=== PATIENT | male | born 1980 | race Caucasian/White ===

== ENCOUNTER 2018-02-15 23:44 | Emergency (ER) | payer OTHER, MEDICAID ==
[~2018-02-15] VITALS: Ht 177.8 cm; Wt 99.8 kg
[2018-02-15 23:55] VITALS: BP_SYST 123
[2018-02-16] MEDS ORDERED: SULFAMETHOXAZOLE/TRIMETHOPR DS 1 TABLET PO ONE (01:15)
[2018-02-16] MEDS ORDERED: CEPHALEXIN 500 MG CAPSULE PO ONE (01:15)
[2018-02-16] MEDS ORDERED: LIDOCAINE/EPI 1% 1:100000 20 ML VIAL INJ ONE (01:15)
[2018-02-16 02:19] VITALS: BP_SYST 120
== END 2018-02-16 02:19 | disposition home or self-care (01) ==
LOC: SED 23:44
DX: L02.212 Cutaneous abscess of back [any part, except buttock and flank] (principal)
CPT/HCPCS: 96372; 99283

== ENCOUNTER 2018-02-17 22:59 | Emergency (ER) | payer OTHER, MEDICAID ==
[~2018-02-17] VITALS: Ht 177.8 cm; Wt 99.8 kg
[2018-02-17 23:04] VITALS: BP_SYST 124
--- NOTE | 2018-02-17 23:15 | NUR ---
Patient to ER bed 04 to gown for evaluation. Side rails up. Report given to MICKI Kulkarni
--- NOTE | 2018-02-17 23:17 | NUR ---
Patient AAOx4, ambulatory. Patient states having a main complaint of a "bump" on his back and states he is here for a recheck of the bump. The patient had an incision and drainage procedure done in the ER on 02/15/18. No redness or drainage noted to the patient's back. Patient denies pain. Patient denies any other complaints.
--- NOTE | 2018-02-17 23:18 | NUR ---
ER Dr. Rahman at bedside examining patient.
[2018-02-17 23:32] VITALS: BP_SYST 122
--- NOTE | 2018-02-17 23:32 | NUR ---
Patient given written and verbal discharge instructions and verbalizes understanding. ER MD discussed with patient the results and treatment provided. Patient in stable condition. ID arm band removed. No Rx given. Patient educated on pain management and to follow up with PMD. Pain Scale 0/10. Opportunity for questions provided and answered.
== END 2018-02-17 23:32 | disposition home or self-care (01) ==
LOC: SED 22:59
DX: Z48.01 Encounter for change or removal of surgical wound dressing (principal)
CPT/HCPCS: 99283

== ENCOUNTER 2021-07-22 00:04 | Emergency (ER) | payer OTHER, MEDICAID ==
[~2021-07-22] VITALS: Ht 182.9 cm; Wt 117.9 kg
[2021-07-22 00:10] VITALS: BP_SYST 167
--- NOTE | 2021-07-22 00:10 | NUR ---
Patient triaged and placed in waiting room. VSS and patient appears in no acute distress at this time. awaiting available bed, and MD notified of need for MSE.
--- NOTE | 2021-07-22 00:45 | NUR ---
ER examining patient in the lobby.
[2021-07-22] MEDS ORDERED: KETOROLAC TROMETHAMINE 30 MG VIAL IM ONE (01:15)
[2021-07-22 01:47] LABS: CALCIUM 8.7 mg/dL (8.4-11.0); CREATININE 0.74 mg/dL (0.55-1.30); POTASSIUM 4.3 mmol/L (3.5-5.1)
[2021-07-22 01:50] LABS: BASOPHILS % (AUTO) 0.3 % (0.0-2.0); EOSINOPHILS % (AUTO) 0.2 % (0.0-4.0); HEMATOCRIT 46.2 % (36-54); HEMOGLOBIN 15.9 g/dL (14.0-18.0); LYMPHOCYTES # (AUTO) 1.2 K/uL (1.0-5.5); LYMPHOCYTES % (AUTO) 7.9 % (20.5-51.5); MEAN CORPUSCULAR HEMOGLOBIN 29 pg (27-31); MEAN CORPUSCULAR HGB CONC 34 % (32-36); MEAN CORPUSCULAR VOLUME 85 fL (79.0-98.0); MONOCYTES # (AUTO) 0.4 K/uL (0.0-1.0); NEUTROPHILS # (AUTO) 13.1 K/uL (1.8-7.7); NEUTROPHILS % (AUTO) 88.6 % (40.0-70.0); RED BLOOD CELL COUNT(AUTO) 5.44 MIL/uL (4.2-6.2); RED CELL DISTRIBUTION WIDTH 14.6 % (9.0-15.0); WHITE BLOOD COUNT (AUTO) 14.7 K/uL (4.8-10.8)
[2021-07-22 01:52] LABS: ALBUMIN 4.1 g/dL (3.4-4.8); PLATELET COUNT (AUTO) 782 K/uL (130-430); TOTAL BILIRUBIN 0.4 mg/dL (0.0-1.0)
--- NOTE | 2021-07-22 03:03 | NUR ---
Pt taken to ultrasound room by Dr Simpson.
--- NOTE | 2021-07-22 05:25 | NUR ---
Dr Simpson re-eval pt in the lobby.
[2021-07-22] MEDS ORDERED: PHE25 PO (05:40)
[2021-07-22] MEDS ORDERED: PANT20TA2 PO (05:40)
[2021-07-22] MEDS ORDERED: HYDR-3917 PO (05:40)
--- NOTE | 2021-07-22 06:40 | NUR ---
Patient given written and verbal discharge instructions and verbalizes understanding. ER MD discussed with patient the results and treatment provided. Patient in stable condition. ID arm band removed. Rx of NORCO,PROTONIX,PHENERGAN given. Patient educated on pain management and to follow up with PMD. Pain Scale 0/10. Opportunity for questions provided and answered. Medication side effect fact sheet provided.
[2021-07-22 06:44] VITALS: BP_SYST 150
== END 2021-07-22 06:44 | disposition home or self-care (01) ==
LOC: SED 00:04
DX: K80.70 Calculus of gallbladder and bile duct without cholecystitis without obstruction (principal)
CPT/HCPCS: 36415; 76700; 80053; 83690; 85025; 96372; 99284; J1885

== ENCOUNTER 2022-02-16 22:07 | Emergency (ER) | payer MEDICARE, MEDICAID ==
[~2022-02-16] VITALS: Ht 180.3 cm; Wt 111.1 kg
[~2022-02-16 22:07] MED LIST: HYDR-3917 PO; PANT20TA2 PO; PHE25 PO
[2022-02-16 22:30] VITALS: BP_SYST 156
--- NOTE | 2022-02-16 22:30 | NUR ---
Patient ambulatory to bed 5 for evaluation and treatment
--- NOTE | 2022-02-16 23:10 | NUR ---
Pt in bed 5 w/ c/o RUQ abdominal pain 10/10 w/ nausea and history of gallstones. Pt appears anxious and paces around his room. Pt states he has had chills, but is afebrile at this time. Respirations even and unlabored.
[2022-02-16] MEDS ORDERED: MORPHINE 4 MG INJ. 4 MG/ML VIAL IVP ONE (23:15)
[2022-02-16 23:48] LABS: BASOPHILS # (AUTO) 0.1 K/uL (0.0-0.2); BASOPHILS % (AUTO) 0.6 % (0.0-2.0); EOSINOPHILS # (AUTO) 0.2 K/uL (0.0-0.4); EOSINOPHILS % (AUTO) 1.5 % (0.0-4.0); HEMATOCRIT 44.7 % (36-54); HEMOGLOBIN 15.4 g/dL (14.0-18.0); LYMPHOCYTES # (AUTO) 2.1 K/uL (1.0-5.5); LYMPHOCYTES % (AUTO) 13.8 % (20.5-51.5); MEAN CORPUSCULAR HEMOGLOBIN 30 pg (27-31); MEAN CORPUSCULAR HGB CONC 34 % (32-36); MEAN CORPUSCULAR VOLUME 87 fL (79.0-98.0); MONOCYTES # (AUTO) 0.6 K/uL (0.0-1.0); MONOCYTES % (AUTO) 4.3 % (1.7-9.3); NEUTROPHILS # (AUTO) 12.1 K/uL (1.8-7.7); NEUTROPHILS % (AUTO) 79.8 % (40.0-70.0); PLATELET COUNT (AUTO) 497 K/uL (130-430); RED BLOOD CELL COUNT(AUTO) 5.12 MIL/uL (4.2-6.2); RED CELL DISTRIBUTION WIDTH 15.4 % (9.0-15.0); WHITE BLOOD COUNT (AUTO) 15.1 K/uL (4.8-10.8)
[2022-02-16 23:53] LABS: CALCIUM 9.1 mg/dL (8.4-11.0); CREATININE 1.15 mg/dL (0.55-1.30)
[2022-02-16 23:59] LABS: ALBUMIN 3.8 g/dL (3.4-4.8); TOTAL BILIRUBIN 0.6 mg/dL (0.0-1.0)
[2022-02-17] MEDS ORDERED: KETOROLAC TROMETHAMINE 30 MG VIAL IVP ONE (00:15)
[2022-02-17] MEDS ORDERED: MORPHINE 4 MG INJ. 4 MG/ML VIAL IVP ONE (00:15)
[2022-02-17] MEDS ORDERED: ONDANSETRON HCL 4 MG/2 ML VIAL IVP ONE ×2 (00:15)
[2022-02-17] MEDS ORDERED: PIPERACILLIN/TAZO 3.375 GM in NS 50 ML IV ONE (00:30)
[2022-02-17] MEDS ORDERED: metroNIDAZOLE 500 mg/NS 100 ML IV ONE (00:30)
[2022-02-17] MEDS ORDERED: NACL 0.9% 1,000 ML IV ONE (00:30)
--- NOTE | 2022-02-17 01:00 | NUR ---
Pt to restroom at this time
[2022-02-17] MEDS ORDERED: PIPERACILLIN/TAZOBACTAM 3.375 GM/VIAL (ZOSYN) IV ONE (01:11)
--- NOTE | 2022-02-17 01:30 | NUR ---
Pt states "my pain is better at this time. It feels like a 2 or 3."
--- NOTE | 2022-02-17 04:30 | NUR ---
IV discontinued. No signs of bleeding. Catheter in tact.
--- NOTE | 2022-02-17 04:42 | NUR ---
Pt left AMA. Form signed. MD Mclain aware and spoke to patient regarding risks of leaving AMA.
[2022-02-19] MEDS ORDERED: SIME80TA15 PO (12:48)
[2022-02-19] MEDS ORDERED: HYDR-3927 PO (12:48)
== END 2022-02-17 04:42 | disposition left against medical advice (07) ==
LOC: SED 22:07
DX: R10.11 Right upper quadrant pain (principal); R11.2 Nausea with vomiting, unspecified; R50.9 Fever, unspecified; Z79.899 Other long term (current) drug therapy
CPT/HCPCS: 99284; 76705; 80053; 83690; 85025; 36415; 96365; 96375; J1885; J3490; J2405; J2543; J2270

== ENCOUNTER 2023-10-10 11:29 | Emergency (ER) | payer OTHER, MEDICAID ==
[~2023-10-10] VITALS: Ht 180.3 cm; Wt 99.8 kg
[~2023-10-10 11:29] MED LIST changes: +HYDR-3927 PO; +SIME80TA15 PO
[2023-10-10 11:33] VITALS: BP_SYST 146; PULSE 88; RESP 18; TEMP 97.9; O2SAT 97
[2023-10-10] MEDS ORDERED: CLIN-142 PO (11:53)
[2023-10-10] MEDS ORDERED: IBUP-1971 PO (11:53)
[2023-10-10] MEDS: DIPHTH,PERTUSS(ACELL),TET VAC 0.5 ML VIAL (Tdap) I.M. ONE (12:14)
[2023-10-10] MEDS: LIDOCAINE 1% 10 MG/ML, 20 ML MDV INJ ONE (12:14)
[2023-10-10] MEDS: BACITRACIN 1 GM OINT TP ONE (12:14)
[2023-10-10 12:18] VITALS: BP_SYST 135; PULSE 88; RESP 18; TEMP 97.9; O2SAT 97
== END 2023-10-10 12:42 | disposition home or self-care (01) ==
LOC: SED 11:29
DX: L02.212 Cutaneous abscess of back [any part, except buttock and flank] (principal); Z79.899 Other long term (current) drug therapy
CPT/HCPCS: 90715; 99284; J2001

== ENCOUNTER 2023-10-12 08:13 | Emergency (ER) | payer OTHER, MEDICAID ==
[~2023-10-12] VITALS: Ht 180.3 cm; Wt 95.3 kg
[~2023-10-12 08:13] MED LIST changes: +CLIN-142 PO; +IBUP-1971 PO
[2023-10-12 08:28] VITALS: BP_SYST 139; PULSE 80; RESP 18; TEMP 98.4; O2SAT 97
[2023-10-12 08:45] VITALS: BP_SYST 139; PULSE 80; RESP 18; TEMP 98.4; O2SAT 97
[2023-10-12] MEDS ORDERED: BACITRACIN 1 GM OINT TP ONE (09:00)
== END 2023-10-12 08:45 | disposition home or self-care (01) ==
LOC: SED 08:13
DX: L02.212 Cutaneous abscess of back [any part, except buttock and flank] (principal); Z79.899 Other long term (current) drug therapy
CPT/HCPCS: 99282